=== PATIENT | male | born 1990 | race African-American/Black ===

== ENCOUNTER 2018-08-04 23:42 | Emergency (ER) | payer MEDICAID ==
[2018-08-04] MEDS ORDERED: Sodium Chloride 0.9% 1000 ML 1,000 ML IV SCH (23:45)
[2018-08-04] MEDS ORDERED: BABY ASPIRIN 81 MG CHEW PO ONE (23:55)
--- NOTE | 2018-08-04 23:58 | ERPHSYRPT ---
- History of Present Illness Time Seen by Provider: 08/04/18 23:58 Historian: patient, family Exam Limitations: no limitations Patient Subjective Stated Complaint: pt states he began having chest pain while at home. describes as preseure. states he had some palpitations Triage Nursing Assessment: pt alert and oriented, answers questions approp. pt ambulatory with steady gait ntoed. respirations nonlabored with lungs cta. skin warm and dry. sinus rhythm on monitor. Physician History: 28 y/o male presents with 3 week h/o intermittent palpitations. however, today sx became more pronounced and constant. pt took 4 baby asa. no soa. no abd pain. no new meds. no xs caffeine. denies illicit use. never had before this 3 weeks. pt states he is under more stress. Timing/Duration: week(s) (3), worse Activities at Onset: none Quality: fullness, pressure, tightness Location: substernal, central Chest Pain Radiation: no radiation Severity of Pain-Max: mild Severity of Pain-Current: mild Modifying Factors: Improves With: nothing Associated Symptoms: palpitations, No shortness of breath, No cough, No syncope Prior Chest Pain/Cardiac Workup: no prior chest pain, no prior cardiac workup Nitro Today/Relief: no nitro taken today Aspirin Treatment Today: 81 mg x 4 Allergies/Adverse Reactions: shellfish derived Allergy (Verified 08/04/18 23:55) Tightness of Throat Hx Tetanus, Diphtheria Vaccination/Date Given: No (unknown) Hx Influenza Vaccination/Date Given: No Hx Pneumococcal Vaccination/Date Given: No Immunizations Up to Date: No - Review of Systems Constitutional: No Symptoms Eyes: No Symptoms Ears, Nose, & Throat: No Symptoms Respiratory: No Symptoms Cardiac: Chest Pain, Palpitations Abdominal/Gastrointestinal: No Symptoms, No Abdominal Pain, No Nausea, No Vomiting, No Diarrhea Genitourinary Symptoms: No Symptoms Musculoskeletal: No Symptoms Skin: No Symptoms Neurological: No Symptoms Psychological: No Symptoms Endocrine: No Symptoms Hematologic/Lymphatic: No Symptoms Immunological/Allergic: No Symptoms All Other Systems: Reviewed and Negative - Past Medical History Pertinent Past Medical History: No Neurological History: No Pertinent History ENT History: No Pertinent History Cardiac History: No Pertinent History Respiratory History: No Pertinent History Endocrine Medical History: No Pertinent History Musculoskeletal History: No Pertinent History GI Medical History: No Pertinent History History: No Pertinent History Psycho-Social History: No Pertinent History Male Reproductive Disorders: No Pertinent History - Past Surgical History Past Surgical History: No Neuro Surgical History: No Pertinent History Cardiac: No Pertinent History Respiratory: No Pertinent History Gastrointestinal: No Pertinent History Genitourinary: No Pertinent History - Social History Smoking Status: Never smoker Exposure to second hand smoke: Yes Drug Use: none Patient Lives Alone: Yes - Nursing Vital Signs Nursing Vital Signs: Initial Vital Signs Pulse Rate 106 H 08/04/18 23:43 Respiratory Rate 20 08/04/18 23:43 Blood Pressure 138/89 08/04/18 23:43 O2 Sat by Pulse Oximetry 96 08/04/18 23:43 Pain Scale Pain Intensity 3 - Physical Exam General Appearance: no apparent distress, alert, anxiety Eye Exam: PERRL/EOMI, eyes nml inspection Ears, Nose, Throat Exam: normal ENT inspection, moist mucous membranes Neck Exam: normal inspection, non-tender, supple, full range of motion Respiratory Exam: normal breath sounds, chest tenderness (mild), lungs clear, airway intact, No respiratory distress Cardiovascular Exam: regular rate/rhythm, normal heart sounds, normal peripheral pulses Gastrointestinal/Abdomen Exam: soft, normal bowel sounds, No tenderness Rectal Exam: not done Back Exam: normal inspection, normal range of motion, No CVA tenderness, No vertebral tenderness Extremity Exam: normal inspection, normal range of motion, pelvis stable Neurologic Exam: alert, oriented x 3, cooperative, 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 as tested Skin Exam: normal color, warm, dry Lymphatic Exam: No adenopathy SpO2 Interpretation: normal SpO2: 96 O2 Delivery: Room Air - Course Nursing assessment & vital signs reviewed: Yes EKG Interpreted by Me: RATE (101), Sinus Rhythm, NORMAL AXIS, NORMAL INTERVALS, NORMAL QRS, Other (no comparison) Ordered Tests: Active Orders 24 hr Category Date Time Status Assistant Professor Of Nursing STAT Care 08/04/18 23:57 Active EKG-ER Only STAT Care 08/04/18 23:55 Active IV Insertion STAT Care 08/04/18 23:55 Active Pulse Oximetry (ED) STAT Care 08/04/18 23:55 Active CHEST 1 VIEW (PORTABLE) Routine Exams 08/05/18 00:17 Taken D-DIMER QUANTITATION Stat Lab 08/05/18 00:30 Completed TROPONIN Q3H Lab 08/05/18 02:56 Ordered TROPONIN Q3H Lab 08/05/18 05:56 Ordered TROPONIN Q3H Lab 08/05/18 08:56 Ordered TROPONIN Q3H Lab 08/05/18 11:56 Ordered Medication Summary Generic Name Dose Route Start Last Admin Trade Name Freq PRN Reason Stop Dose Admin Sodium Chloride 1,000 mls @ 50 mls/hr 08/04/18 23:45 08/05/18 00:07 Sodium Chloride 0.9% 1000 Ml IV 09/03/18 23:44 50 mls/hr .Q20H KJ Administration Sodium Chloride 500 mls @ 500 mls/hr 08/05/18 00:59 Sodium Chloride 0.9% 500 Ml IV 08/05/18 01:58 .Q1H ONE Discontinued Medications Generic Name Dose Route Start Last Admin Trade Name Freq PRN Reason Stop Dose Admin Aspirin 324 mg 08/04/18 23:55 08/05/18 00:00 Baby Aspirin 81 Mg Chew PO 08/04/18 23:56 Not Given STAT ONE Lorazepam 1 mg 08/05/18 00:31 08/05/18 00:51 Ativan 2 Mg/1 Ml Vial IV 08/05/18 00:32 1 mg STAT ONE Administration Lorazepam Confirm 08/05/18 00:39 Ativan 2 Mg/1 Ml Vial Administered 08/05/18 00:40 [facility] Lab/Rad Data: Laboratory Result Diagrams 08/04/18 00:31 08/04/18 00:31 Laboratory Results 08/05/18 08/04/18 08/04/18 Range/Units 00:30 00:31 00:31 WBC (4.0-10.5) K/mm3 RBC (4.1-5.6) M/mm3 Hgb (12.5-18.0) gm/dl Hct (42-50) % MCV (78-100) fl MCH (26-32) pg MCHC (32-36) g/dl RDW (11.5-14.0) % Plt Count (150-450) K/mm3 MPV (6-9.5) fl Gran % (36.0-66.0) % Eos # (Auto) (0-0.5) Absolute Lymphs (auto) (1.0-4.6) Absolute Monos (auto) (0.0-1.3) Lymphocytes % (24.0-44.0) % Monocytes % (0.0-12.0) % Eosinophils % (0.00-5.0) % Basophils % (0.0-0.4) % Absolute Granulocytes (1.4-6.9) Basophils # (0-0.4) PT 12.5 (8.83-12.87) SECONDS INR 1.07 (0.8-3.0) D-Dimer 729 H* (215-500) ng/mL Sodium (137-145) mmol/L Potassium (3.5-5.1) mmol/L Chloride (98-107) mmol/L Carbon Dioxide (22-30) mmol/L Anion Gap (5-15) MEQ/L BUN (9-20) mg/dL Creatinine (0.66-1.25) mg/dL Estimated GFR ML/MIN Glucose (74-106) mg/dL Calcium (8.4-10.2) mg/dL Total Bilirubin (0.2-1.3) mg/dL AST (17-59) U/L ALT (0-50) U/L Alkaline Phosphatase (38-126) U/L Troponin I < 0.012 (0.000-0.034) ng/mL NT-Pro-B Natriuret Pep (0-450) pg/mL Serum Total Protein (6.3-8.2) g/dL Albumin (3.5-5.0) g/dL 08/04/18 08/04/18 Range/Units 00:31 00:31 WBC 8.1 (4.0-10.5) K/mm3 RBC 4.64 (4.1-5.6) M/mm3 Hgb 13.6 (12.5-18.0) gm/dl Hct 40.8 L (42-50) % MCV 87.9 (78-100) fl MCH 29.3 (26-32) pg MCHC 33.3 (32-36) g/dl RDW 14.2 H (11.5-14.0) % Plt Count 207 (150-450) K/mm3 MPV 10.4 H (6-9.5) fl Gran % 56.2 (36.0-66.0) % Eos # (Auto) 0.15 (0-0.5) Absolute Lymphs (auto) 2.52 (1.0-4.6) Absolute Monos (auto) 0.86 (0.0-1.3) Lymphocytes % 31.0 (24.0-44.0) % Monocytes % 10.6 (0.0-12.0) % Eosinophils % 1.8 (0.00-5.0) % Basophils % 0.4 (0.0-0.4) % Absolute Granulocytes 4.56 (1.4-6.9) Basophils # 0.03 (0-0.4) PT (8.83-12.87) SECONDS INR (0.8-3.0) D-Dimer (215-500) ng/mL Sodium 139 (137-145) mmol/L Potassium 3.8 (3.5-5.1) mmol/L Chloride 101 (98-107) mmol/L Carbon Dioxide 26 (22-30) mmol/L Anion Gap 15.4 H (5-15) MEQ/L BUN 15 (9-20) mg/dL Creatinine 0.83 (0.66-1.25) mg/dL Estimated GFR > 60.0 ML/MIN Glucose 88 (74-106) mg/dL Calcium 9.5 (8.4-10.2) mg/dL Total Bilirubin 0.40 (0.2-1.3) mg/dL AST 108 H (17-59) U/L ALT 50 (0-50) U/L Alkaline Phosphatase 74 (38-126) U/L Troponin I (0.000-0.034) ng/mL NT-Pro-B Natriuret Pep 49.3 (0-450) pg/mL Serum Total Protein 8.3 H (6.3-8.2) g/dL Albumin 4.4 (3.5-5.0) g/dL - Progress Progress: improved, re-examined Air Movement: good Progress Note: 08/05/18 01:39 pts d dimer is mod elevated. pt has a true allergy to shellfish and has never had iodine contrast before. 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 in order to avoid iv contrast, pt has opted for v/q scan. pt is to be at registration at 0630 this morning 08/05/18. pt is to receive 1mg/kg subq lovenox 08/05/18 01:41 cxr- no acute process Counseled pt/family regarding: lab results, diagnosis, need for follow-up, rad results - Departure Departure Disposition: Home Clinical Impression: Chest pressure, Elevated d-dimer Condition: Stable Critical Care Time: No Referrals: DOCTOR,NO FAMILY [Primary Care Provider] - Additional Instructions: return to ED registration at 0630 this morning (08/05/18) for V/Q scan.
[2018-08-05] MEDS ORDERED: Sodium Chloride 0.9% 1000 ML 1,000 ML ONE (00:05)
[2018-08-05 00:15] LABS: BASOPHIL % 0.4 % (0.0-0.4); Basophil (Absolute #) 0.03 (0-0.4); Eosinophil % 1.8 % (0.00-5.0); Eosinophil (Absolute #) 0.15 (0-0.5); Granulocyte Absolute (ANC) 4.56 (1.4-6.9); Granulocytes % 56.2 % (36.0-66.0); Hematocrit 40.8 % (42-50); Hemoglobin 13.6 gm/dl (12.5-18.0); Lymphocyte (Absolute #) 2.52 (1.0-4.6); Mean Cell Volume 87.9 fl (78-100); Mean Corpuscular Hemoglobin 29.3 pg (26-32); Mean Corpuscular Hgb Concent. 33.3 g/dl (32-36); Mean Platelet Volume 10.4 fl (6-9.5); Monocyte (Absolute #) 0.86 (0.0-1.3); Monocytes % 10.6 % (0.0-12.0); Platelet Count 207 K/mm3 (150-450); Red Blood Count 4.64 M/mm3 (4.1-5.6); Red Cell Distribution Width 14.2 % (11.5-14.0); White Blood Count 8.1 K/mm3 (4.0-10.5)
[2018-08-05 00:24] LABS: INR 1.07 (0.8-3.0); PROTIME 12.5 SECONDS (8.83-12.87)
[2018-08-05] MEDS ORDERED: Ativan 2 MG/1 ML VIAL IV ONE (00:31)
[2018-08-05 00:37] LABS: ALBUMIN 4.4 g/dL (3.5-5.0); ALKALINE PHOSPHATASE 74 U/L (38-126); ANION GAP 15.4 MEQ/L (5-15); BLOOD UREA NITROGEN 15 mg/dL (9-20); CHLORIDE 101 mmol/L (98-107); Calcium 9.5 mg/dL (8.4-10.2); Carbon Dioxide 26 mmol/L (22-30); Creatinine 1 0.83 mg/dL (0.66-1.25); Glucose 88 mg/dL (74-106); NT PRO BNP 49.3 pg/mL (0-450); Potassium 3.8 mmol/L (3.5-5.1); SGOT/AST 108 U/L (17-59); SGPT/ALT 50 U/L (0-50); SODIUM 139 mmol/L (137-145); Total Protein 8.3 g/dL (6.3-8.2)
[2018-08-05] MEDS ORDERED: Ativan 2 MG/1 ML VIAL ONE (00:39)
[2018-08-05] MEDS ORDERED: Sodium Chloride 0.9% 500 ML 500 ML IV ONE (00:59)
[2018-08-05] MEDS ORDERED: ENOXAPARIN SODIUM SQ ONE (01:38)
[2018-08-05 02:08] VITALS: BP 107/68; PULSE 91; O2SAT 100
--- NOTE | 2018-08-05 09:49 | XRAY ---
Indication: Chest pain. Comparison: None Portable apical lordotic chest demonstrates normal heart, lungs, and bony thorax.
== END 2018-08-05 02:15 | disposition home or self-care (01) ==
LOC: ED 23:42
DX: R07.89 Other chest pain (principal); R79.89 Other specified abnormal findings of blood chemistry
CPT/HCPCS: 36000; 36415; 71045; 80053; 83880; 84484; 85025; 85379; 85610; 93005; 93041; 96360; 96361; 96372; 96374; 99284; J1650; J2060